=== PATIENT | female | born 1940 | race Caucasian/White ===

== ENCOUNTER 2017-10-09 17:53 | Emergency (ER) | payer MEDICARE, OTHER, SELFPAY ==
[2017-10-09 18:05] VITALS: BP 142/75; PULSE 74; RESP 18; O2SAT 99; BMI 28.5
--- NOTE | 2017-10-09 18:15 | XR_ITS ---
XR chest 2V HISTORY: ITS.REASON: post-op for JUAN removal ORDERING PHYSICIAN: Neeraj Vega MD PATIENT AGE: 77 years COMPARISON: 05/09/2015 FINDINGS: History is given of recent left upper lobe surgery/removal. Heart size is normal. Chronic coarsening of the bronchovascular markings noted with evidence of old granulomatous disease. There is a 13 mm opacity in the left midlung and could be related to developing nodule or a focal area of consolidation. There is increased density along the left paraspinal region and left lower lung zone in the retrocardiac area. This has the appearance of left lower lobe collapse however, given the patient's history this may only be due to postsurgical change. Correlation with more recent postoperative films are recommended. Chest CT may be of further value as well. There is slightly elevated left hemidiaphragm. The right lung is free of acute infiltrate. No acute bony anomalies. IMPRESSION: 1. 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 2. The appearance of the chest is that of left lower lobe collapse. Please correlate with patient's surgical history. 3. 13 mm left upper lobe nodule similar to that noted on the previous CT scan of 08/29/2017 suspicious for neoplasm
--- NOTE | 2017-10-09 18:34 | HMH.EDWNDL ---
ED Disposition Clinical Impression: Seroma after procedure Dehiscence of laceration repair Qualifiers: Encounter type: initial encounter Qualified Code(s): T81.33XA - Disruption of traumatic injury wound repair, initial encounter Disposition: Home, Self-Care Condition on Discharge: Good Instructions: DI for Laceration Repair Additional Instructions: Please keep wound clean and dry, change dressing daily, follow-up with the growth media mixer mushroom, as scheduled on Saturday. Please find attached a copy of your chest x-ray obtained today. Please advise the growth media mixer mushroom if dressing continues to be stained or soaked with fluid. Referrals: Demetrius Sheppard MD [Primary Care Provider] - Time of Disposition: 19:09 - Critical Care Critical Care Time: No Attestation: On 10/09/17, the high probability of a clinically significant, sudden or life threatening deterioration of the following system(s) required my full and direct attention, intervention and personal management. The time I documented below is in addition to time spent performing reported procedures but includes the following listed in this critical care notation. Medical Decision Making - Medical Records Medical records reviewed: Yes: I reviewed the patient's medical records. Vital Signs: 10/09/17 18:05 Temperature Source Oral Pulse Rate [Right Brachial] 74 Respiratory Rate 18 Blood Pressure [Right Arm] 142/75 Blood Pressure Mean [Right Arm] 97 Blood Pressure Source [Right Arm] Automatic Cuff Blood Pressure Position [Right Arm] Sitting 02 Sat by Pulse Oximetry 99 Oxygen Delivery Method Room Air - Lab Data Lab results reviewed: Yes: I reviewed the patient's lab results. - Radiology Data #1 Image(s): Chest Image Reviewed: Yes I reviewed the patient's radiology image Preliminary Findings: Normal/NAD no pleural effusion, no PTX, no consolidation. - Chris Inquiry Pt receiving controlled substance: No - Reevaluation(s) Time: 19:00 Reevaluation #1: Patient is to follow up with CT surgeon per discharge instructions, if drainage restarts to return to this ER for re-eval. Wound/Laceration HPI - General Chief Complaint: Wound/Laceration Stated Complaint: Surg [id number] Surg Leaking Time Seen by Provider: 10/09/17 18:10 Mode of Arrival: Family Vehicle Limitations: Physical Limitations Description of Symptoms (Recalled from ER Triage Doc. by RN): RECENTLY HAD UPPER LOBECTOMY LEFT SIDE AT ON 4TH OF MONTH. REMOVAL OF. CANCER. NO ISSUES TILL TODAY WHEN SHE BEGAN RANDOMLY DRAINING - History of Present Illness HPI narrative: s/p left upper lung lobe resection at [facility] 2 weeks ago, here with post surgical wound draining serous fluid for the past 2-3 hrs. Onset (ago): hour(s) (3) Location: chest (left posterior chest) Patient tetanus UTD: Yes Context: other (post surgical wound) Associated symptoms: none - Related Data Home Medications Medication Instructions Recorded Confirmed Bisoprol/Hydrochlorothiazide 1 tab PO DAILY 10/09/17 10/09/17 [Bisoprolol-Hctz 10-6.25 mg Tab] Omeprazole [Omeprazole 20mg 1 tab PO DAILY 10/09/17 10/09/17 Capsule] Simvastatin [Simvastatin] 1 tab PO DAILY 10/09/17 10/09/17 Allergies Allergy/AdvReac Type Severity Reaction Status Date / Time meloxicam [MELOXICAM] AdvReac Unknown CAUSED Verified 10/09/17 18:20 [facility] History I have reviewed the patient's past medical history: Yes Medical History: Denies:: Cancer, Diabetes Mellitus Type 1, Diabetes Mellitus Type 2, MRSA - *Social History Educational Level: Completed Grade School Alcohol Intake: never - Psychiatric History Expresses thoughts of harming self/others: None Suicide Plan Description: No Plan ROS Obtained: Yes All systems reviewed & no additional complaints - Integumentary/Breasts Skin/Breast: Reports other (left posterior chest surgical wound drainage) Physical Exam - General General appearance
== END 2017-10-09 19:36 | disposition home or self-care (01) ==
PROVIDERS: Emergency Provider Emergency Medicine; PCP Internal Medicine Adolescent Medicine
DX: L76.34 Postprocedural seroma of skin and subcutaneous tissue following other procedure (principal); T81.31XA Disruption of external operation (surgical) wound, not elsewhere classified, initial encounter; Y83.9 Surgical procedure, unspecified as the cause of abnormal reaction of the patient, or of later complication, without mention of misadventure at the time of the procedure; C34.92 Malignant neoplasm of unspecified part of left bronchus or lung; Z79.899 Other long term (current) drug therapy
CPT/HCPCS: 12001; 71046; 99282

== ENCOUNTER → 2017-10-15 09:54 | Outpatient (CLI) | payer MEDICARE, OTHER, SELFPAY ==
--- NOTE | 2017-10-15 10:06 | XR_ITS ---
XR chest 2V HISTORY: ITS.REASON: LUNG NODULE ORDERING PHYSICIAN: Akshat Field MD PATIENT AGE: 77 years COMPARISON: 10/09/2017 FINDINGS: There is normal heart size. Increased density is once again noted in the retrocardiac region on the left giving the appearance of left lower lobe collapse similar to the previous exam. Postsurgical change could have a similar appearance. Please correlate with patient's history. Chest CT with contrast may be of further value for confirmation. There is once again noted a suspicious 11 mm nodule in the left upper lobe. There is evidence of old granulomatous disease. IMPRESSION: 1. Overall no significant change in the appearance of the chest with wedge shaped density in the retrocardiac region consistent with left lower lobe collapse versus postsurgical change. 2. No change suspicious 11 mm left upper lobe nodule
== END ==
PROVIDERS: PCP Internal Medicine Adolescent Medicine; Visit Provider Thoracic Surgery (Cardiothoracic Vascular Surgery)
DX: R91.1 Solitary pulmonary nodule (principal)
CPT/HCPCS: 71046

== ENCOUNTER → 2017-10-18 08:57 | Outpatient (POV) | payer MEDICARE, OTHER, SELFPAY | PROVIDERS: Visit Provider Thoracic Surgery (Cardiothoracic Vascular Surgery) | DX: Z00.00 Encounter for general adult medical examination without abnormal findings (principal) ==

== ENCOUNTER → 2017-12-30 13:14 | Outpatient (CLI) | payer MEDICARE, OTHER, SELFPAY ==
[2017-12-30 13:20] LABS: Microscopic, Urine URINE MICROSCOPIC (MICROSCOPIC)
[2017-12-30 13:57] LABS: Appearance,Urine CLEAR (Clear); Bilirubin,Urine Negative (Negative); Blood, Urine TRACE-L (Negative); Color,Urine YELLOW (Yellow); Glucose,Urine (UA) Negative (Negative); Ketones,Urine Negative (Negative); Leukocyte Esterase,Urine 1+ (Negative); Nitrate,Urine Negative (Negative); Protein,Urine Negative (Negative); Urobilinogen,Urine 0.2 EU/dl (0.2)
[2017-12-30 14:30] LABS: Bacteria,Urine 2+ /lpf; RBC,Urine Occasional #/hpf (0-3)
== END ==
PROVIDERS: Visit Provider Nurse Practitioner Family
DX: R31.21 Asymptomatic microscopic hematuria (principal)
CPT/HCPCS: 81001; 87086

== ENCOUNTER → 2018-01-01 12:51 | Outpatient (CLI) | payer MEDICARE, OTHER, SELFPAY ==
--- NOTE | 2018-01-01 12:53 | CT_ITS ---
CT chest wo con HISTORY: Follow-up lung cancer ITS.REASON: LUNG CA ORDERING PHYSICIAN: Akshat Field MD PATIENT AGE: 77 years Technique: Axial images obtained. Sagittal and coronal reformatted images are also generated and reviewed. All CT scans at the facility use one or more dose reduction, viz: automated exposure control; ma/kV adjustment per patient size (including targeted exams where dose is matched to indication; i.e. head); or iterative reconstruction technique. CONTRAST: None COMPARISON: and 03/20/2017 FINDINGS: The patient has had an interval left lower lobectomy. Mediastinal and hilar evaluation is limited without IV contrast. The previously noted area of consolidation with nodularity in the superior segment left lower lobe is no longer present having been removed. Surgical changes are present with pleural thickening and loculated pleural effusion in the left lower lungs. There remains a spiculated lesion within the left upper lobe at 16 x 10 mm similar in size compared to the previous exam. Calcified granulomas present in the left apex. Other scattered calcified granulomas are present. A noncalcified nodule present in the right middle lobe at 6 mm unchanged the right posterior costophrenic sulcus is not included on the images 8 mm nodular opacity in the right lung base medially adjacent to the heart and may actually be partial volume averaging from the inferior pulmonary vein stable since 05/09/2015. There are few small nodes in the mediastinum which are not significantly changed. Precarinal adenopathy noted at 2.4 x 1.5 cm not significant change. There is limited evaluation without IV contrast. There is increased soft tissue density in the left upper lobe anteriorly and medially which is developed in the interval and could be due to an area of subpleural atelectasis or consolidation. No acute bony anomalies. IMPRESSION: 1. Interval left lower lobectomy. 2. No change spiculated 15 x 10 mm nodule in the left upper lobe. 3. No change mild mediastinal adenopathy
== END ==
PROVIDERS: PCP Nurse Practitioner Family; Visit Provider Thoracic Surgery (Cardiothoracic Vascular Surgery)
DX: C34.90 Malignant neoplasm of unspecified part of unspecified bronchus or lung (principal)
CPT/HCPCS: 71250

== ENCOUNTER → 2018-01-03 09:45 | Outpatient (CLI) | payer MEDICARE, OTHER, SELFPAY ==
[2018-01-03 11:21] LABS: Blood Urea Nitrogen 19 mg/dL (7-18); Creatinine,Serum 1.14 mg/dL (0.55-1.02); Estimated Glomerular Filt Rate 46 ml/min (>60); GFR (African American) 56 ML/MIN (>60)
== END ==
PROVIDERS: Visit Provider Internal Medicine Adolescent Medicine
DX: R31.29 Other microscopic hematuria (principal)
CPT/HCPCS: 36415; 82565; 84520

== ENCOUNTER → 2018-01-09 09:25 | Outpatient (CLI) | payer MEDICARE, OTHER, SELFPAY ==
--- NOTE | 2018-01-09 09:45 | CT_ITS ---
CT abdomen pelvis wo/w con CLINICAL INDICATION: ITS.REASON: MICROSCOPIC HEMATURIA ORDERING PHYSICIAN: Lexi Du PATIENT AGE: 77 years COMPARISON: 05/09/2015 TECHNIQUE: Axial images obtained without and with contrast. Post enhanced images are obtained immediately and at 10 minute delayed. Sagittal and coronal reformats. All CT scans at the facility use one or more dose reduction, viz: automated exposure control; ma/kV adjustment per patient size (including targeted exams where dose is matched to indication; i.e. head); or iterative reconstruction technique. PROCEDURE: Oral Contrast: None IV Contrast: 75 mL of Isovue-370. FINDINGS: Nodular opacities are present in both lung bases similar to the chest CT of 01/01/2018. Please see that report for further description. Loculated pleural effusion is present in the left lower lobe. The liver, spleen, adrenal glands, and pancreas have an unremarkable appearance. No renal calculi or hydronephrosis evident. There are small bilateral parapelvic renal cysts. A 5 mm isodensity is present in the lower pole the left kidney is may be due to small cyst not significantly changed. Urinary bladder has an unremarkable appearance. No pelvic mass or abnormal fluid collection or focal inflammatory change. No evidence of appendicitis, intestinal obstruction, diverticulitis, or free air. No acute bony anomalies. IMPRESSION: 1. No acute finding. No obstructing renal or ureteral calculi or suspicious renal mass. 2. Small parapelvic renal cyst and small left renal cortical cyst
--- NOTE | 2018-01-09 11:07 | HMH.ITSHM ---
BISOPR/HCTZ, SIMVASTATIN, OMEPRAZOLE
== END ==
PROVIDERS: PCP Nurse Practitioner Family; Visit Provider Nurse Practitioner Family
DX: R31.29 Other microscopic hematuria (principal)
CPT/HCPCS: 74170; 74178; Q9967

== ENCOUNTER → 2018-01-17 08:13 | Outpatient (POV) | payer MEDICARE, OTHER, SELFPAY | PROVIDERS: PCP Nurse Practitioner Family; Visit Provider Thoracic Surgery (Cardiothoracic Vascular Surgery) | DX: Z00.00 Encounter for general adult medical examination without abnormal findings (principal) ==

== ENCOUNTER → 2018-03-17 14:46 | Outpatient (CLI) | payer MEDICARE, OTHER, SELFPAY ==
[2018-03-17 15:27] LABS: Blood Urea Nitrogen 21 mg/dL (7-18); Creatinine,Serum 0.93 mg/dL (0.55-1.02); Estimated Glomerular Filt Rate 58 ml/min (>60); GFR (African American) 71 ML/MIN (>60)
--- NOTE | 2018-03-17 15:37 | CT_ITS ---
CT chest wo/w con HISTORY: ITS.REASON: LUNG CA ORDERING PHYSICIAN: Akshat Field MD PATIENT AGE: 77 years COMPARISON: CT chest 08/10 and 08/29/2017 Technique: Helical CT scanning performed through the chest before and after 75 cc Isovue-370. Sagittal and coronal reformatted images are also generated and reviewed. All CT scans at the facility use one or more dose reduction, viz: automated exposure control; ma/kV adjustment per patient size (including targeted exams where dose is matched to indication; i.e. head); or iterative reconstruction technique. FINDINGS: Motion artifact on diminishes resolution on some of the images for example there is multiple step-off artifact at the sternum due to likely respiratory motion artifact Left lower lobectomy again noted . The previously noted area ofconsolidation with nodularity in the superior segment left lower lobe seen August 2017 is no longer present having been removed. Surgical changes are present with pleurathickening and loculated pleural effusion in the left lower lungs. Most notable nodule is been spiculated lesion within L UL 15 mm x 10 mm. similar in sizecompared to the previous exam. Other stable less concerning features, Calcified granulomas present in the left apex.Other scattered calcified granulomas are present. A noncalcified nodule anterior RML axial slice 45 at 6 mm unchanged . Fairly dense for size on previous studies There is question regarding nodule into the right branden but I believe this is related to volume averaging from the rightqq pulmonary vein as previously suggested. Motion artifact is more pronounced in this area which does decrease resolution Also Very minor pleural thickening/ soft tissuedensity in the left upper lobe overlying its anteriorly and medially aspect that was noted on on previous study appears less evident today. Likely likely reflecting mainly atelectasis possibly some minor scarring. Not felt to be of significance.. fluid occupying the site of left lobectomy here at the medial left lung base again noted. Only scant pleural fluid otherwise posteriorly at the left chest. Mediastinum fairly stable appearance changed. Precarinal adenopathy noted at 23 x 12 mm not significant change. No acute bony anomalies. . A small lucent area at the posterior aspect lower thoracic T9 vertebra stable since 2017 doubt/unlikely metastatic disease. More likely merely small benign cystic feature IMPRESSION 1.. Left lower lobectomy.. Stable appearance since 01/01/2018 Persistent of pleural fluid collection and medial left base subsequent to the removed left lower lobe. Also with scant thin left pleural effusion otherwise noted more superiorly left chest which is stable 2. No appreciable change of the spiculated 15 x 10 mm nodule in the left upper lobe. 3. No change mild mediastinal adenopathy
== END ==
PROVIDERS: PCP Internal Medicine Adolescent Medicine; Visit Provider Thoracic Surgery (Cardiothoracic Vascular Surgery)
DX: C34.32 Malignant neoplasm of lower lobe, left bronchus or lung (principal)
CPT/HCPCS: 36415; 71270; 82565; 84520; Q9967

== ENCOUNTER → 2018-04-07 17:39 | Outpatient (CLI) | payer MEDICARE, OTHER, SELFPAY ==
--- NOTE | 2018-04-07 | CT_ITS ---
CT cervical spine wo con Ordering Physician: Demetrius Sheppard MD Patient Age: 77 years: Female HISTORY: Fell off tractor this afternoon. Injury to head and neck and left side of face bruised. Eye Swollen Neck pain TECHNIQUE: Helical CT scanning performed of the cervical spine with sagittal and axial and coronal reconstructions on CT workstation.. All CT scans at this facility used one or more dose reduction techniques , viz: automatic exposure control, ma/Kv adjustment per patient's size, (including targeted exam where dose matched to the indication; i.e. head); or iterative reconstruction technique COMPARISON :Previous CT soft tissue neck 03/04/2017 FINDINGS No acute fracture nor subluxation cervical spine. There are multilevel degenerative changes with prominent disc space narrowing C3/, C4/C5 & C5/ C6 The cranial cervical junction appears adequate. C1-C2 relationships appear normal. C2/3 disc intact mild degenerative facet changes bilateral C3/4 marked degenerative disc space narrowing disc with mild 2 mm retrolisthesis, of C3 on C4. Unchanged since prior 2017 exam mild bilateral degenerative facet changes. C4/5:: Marked degenerative disc space narrowing& nearly Obliterating the disc. Scant posterior hypertrophic endplate ridging facet arthropathy C5-C6. Disc space narrowing. Facet arthropathy Apices the lungs are clear. No prominent masses scattered small nodes in the neck No significant new findings compared to 2017 CT soft tissue neck Trace mucosal thickening at the inferior maxillary sinuses IMPRESSION. ========= 1. No acute fracture nor subluxation cervical spine 2. Multilevel degenerative disc changes - Unchanged appearance since 2017 CT neck IMPRESSION:
--- NOTE | 2018-04-07 17:49 | CT_ITS ---
CT head/brain wo con HISTORY: Fell off tractor. This morning. Hit left side of face and head. Left eye swollen. ITS.REASON: FALL WITH HEAD TRAUMA ORDERING PHYSICIAN: Demetrius Sheppard MD PATIENT AGE: 77 years COMPARISON: MRI of brain 2010 TECHNIQUE: Axial images obtained without contrast. Brain and bone windows reviewed. All CT scans at the facility use one or more dose reduction, viz: automated exposure control; ma/kV adjustment per patient size (including targeted exams where dose is matched to indication; i.e. head); or iterative reconstruction technique. FINDINGS: No acute intracranial findings. No midline shift, mass effect, intracranial hemorrhage, hydrocephalus, or extra-axial fluid collection is evident. Atherosclerotic changes and carotid siphon . slightly generous cisterna magna noted. Stable since 2011 MR. Posterior fossa otherwise unremarkable No acute skull fracture . There is a fracture at the medial wall of the left orbit but no adjacent air-fluid levels nor inflammatory changes nor or findings in the ethmoid air cells to further confirm as acute fracture. The 5 mm medially displaced fragment at lamina papyracea measures 14 mm AP, with smooth margins .I tend favor this is old, but This feature has occurred occurred since 2010 MR brain exam.. Thus cannot totally exclude a recent fracture of the of thin medial orbital wall/lamina papyracea particularly in view of the recent left face trauma and evident periorbital edema and swelling. The left globe intact & unremarkable by CT. No sinus air-fluid levels.. Specifically no fluid levels or findings at left ethmoid air cells that would typically be expected from a recent fracture . Only Scant, Minor mucosal thickening maxillary sinuses bilaterally. Leftward deviation nasal septum incidentally noted. Left Periorbital Soft tissue swelling surrounding the left orbit Mastoid air cells well-developed and clear. Middle ear clear. IACs unremarkable.No mastoid effusion. ----IMPRESSION : No acute intracranial findings Left Periorbital edema on reflecting recent face trauma. Fracture at the thin medial wall/lamina papyracea of left orbit. Age indeterminate but tend to favor older. No air-fluid level or adjacent findings in the ethmoid air cells to further support as acute. However this has occurred since 2011 MRI brain. Correlation required Minor VRC discrepancy
[2018-04-07 18:30] VITALS: BMI 28.3
== END ==
PROVIDERS: PCP Internal Medicine Adolescent Medicine; Visit Provider Internal Medicine Adolescent Medicine
DX: S09.8XXA Other specified injuries of head, initial encounter (principal)
CPT/HCPCS: 70450; 72125; 90715; 96372

== ENCOUNTER → 2018-04-23 08:15 | Outpatient (CLI) | payer MEDICARE, OTHER, SELFPAY ==
--- NOTE | 2018-04-23 08:18 | MM_ITS ---
MM Dig screening mamm BI w/CAD I ORDERING PHYSICIAN : Demetrius Sheppard MD PATIENT AGE: 77 years GENDER: Female COMPARISON: March 2016, February 2015, December 2013, INDICATION: ITS.REASON: SCREENING no hormones. No new complaints. Previous benign surgical excisional biopsy at the left breast Breast surgery scar at the 1-2 o'clock position left breast along with a? Lung surgery scar? Family history. Maternal aunt with breast cancer TECHNIQUE: Standard CC and MLO images were obtained. R2 CAD reviewed. FINDINGS: Moderate density breast with no dominant mass nor suspicious calcifications. Breast mild asymmetry appears stable. CAD computer review highlights no areas of concern either.. IMPRESSION: Basically Stable bilateral mammogram.... No significant new areas of concern Moderate breast density. Follow-up in one year BI-RADS Category: 2 Benign Finding(s) RECOMMENDED FOLLOW-UP: 1YR 1 YEAR FOLLOW-UP (A letter has been sent to the patient regarding results of the study.)
== END ==
PROVIDERS: PCP Internal Medicine Adolescent Medicine; Visit Provider Internal Medicine Adolescent Medicine
DX: Z12.31 Encounter for screening mammogram for malignant neoplasm of breast (principal)
CPT/HCPCS: 77067

== ENCOUNTER → 2018-07-26 08:42 | Outpatient (CLI) | payer MEDICARE, OTHER, SELFPAY ==
[2018-07-26 09:17] LABS: Basophils % 0.2 % (0.1-2.0); Eosinophils # 0.1 K/mm3 (0.0-0.4); Eosinophils % 2.8 % (0.1-12.0); Hematocrit 42.1 % (37.0-47.0); Hemoglobin 13.3 g/dL (12.2-16.2); Lymphocytes % 21.7 K/mm3 (10-50); Mean Corpuscular HGB Conc 31.7 g/dL (31.8-35.4); Mean Corpuscular Hemoglobin 29.4 pg (27.0-31.2); Mean Platelet Volume 7.4 fl (7.4-10.4); Monocytes # 0.2 K/mm3 (0.1-1.0); Monocytes % 4.3 % (1.7-9.3); Neutrophils # 3.3 K/mm3 (1.8-7.8); Neutrophils % 70.9 % (37.0-80.0); Platelet Count 203 K/mm3 (142-424); Red Blood Count 4.52 M/mm3 (4.20-5.40); Red Cell Distribution Width 13.5 % (11.5-17.5); White Blood Count 4.6 K/mm3 (4.8-10.8)
[2018-07-26 12:55] LABS: Alanine Aminotransferase 17 U/L (12-78); Albumin Level 3.2 gm/dL (3.4-5.0); Albumin/Globulin Ratio 0.8 (1.1-1.8); Alkaline Phosphatase 90 U/L (46-116); Anion Gap 11.6 mEq/L (5-15); Aspartate Amino Transferase 20 U/L (15-37); Bilirubin,Total 0.6 mg/dL (0.2-1.0); Blood Urea Nitrogen 20 mg/dL (7-18); Calcium 8.7 mg/dL (8.5-10.1); Carbon Dioxide 30 mmol/L (21.0-32.0); Chloride 105 mmol/L (98-107); Chol/HDL Ratio 2.6 (1-3.5); Cholesterol 162 mg/dL (140-200); Creatinine,Serum 0.97 mg/dL (0.55-1.02); Estimated Glomerular Filt Rate 56 ml/min (>60); GFR (African American) 67 ML/MIN (>60); Globulin 3.9 gm/dl (1.3-3.2); Glucose 85 mg/dL (74-106); HDL Cholesterol 63 mg/dL (29-89); LDL Cholesterol 81 mg/dL (0-130); Potassium 4.6 mmoL/L (3.5-5.1); Sodium 142 mmol/L (136-145); Thyroid Stimulating Hormone 1.94 uIU/ml (0.358-3.740); Total Protein,Serum 7.1 gm/dL (6.4-8.2); Triglycerides 88 mg/dL (30-200); VLDL Cholesterol 18 mg/dL (0-40)
== END ==
PROVIDERS: Visit Provider Nurse Practitioner Family
DX: Z85.118 Personal history of other malignant neoplasm of bronchus and lung (principal); I10 Essential (primary) hypertension; E78.5 Hyperlipidemia, unspecified; E04.1 Nontoxic single thyroid nodule
CPT/HCPCS: 36415; 80053; 80061; 84443; 85025

== ENCOUNTER → 2018-07-29 14:19 | Outpatient (CLI) | payer MEDICARE, OTHER, SELFPAY ==
--- NOTE | 2018-07-29 14:21 | US_ITS ---
US thyroid HISTORY: ITS.REASON: THYROID NODULE ORDERING PHYSICIAN: Lexi Du PATIENT AGE: 77 years Comparison: 04/10/2016 FINDINGS: The right lobe is 4.1 x 1.7 x 1.6 cm with heterogeneous echogenicity. Nodule A: Upper pole 6 x 4 mm slightly hypoechoic. Nodule B: Mid polar region 9 x 10 mm with central calcification hypoechoic. FNA was performed of this nodule showing benign follicular nodule on 05/09/2016 Nodule C: Hypoechoic lower pole 3 mm. Nodule D: Isoechoic lower pole 6 by millimeters unchanged The left lobe measures 3.5 x 1.3 x 1.9 cm. Nodule A: Heterogeneous 5 x 3 mm nodule mid polar region unchanged. Nodule B: 3 mm hypoechoic mid polar region unchanged IMPRESSION: Overall no change in the dominant nodule in the right lobe of the thyroid gland with multiple small nodules apparent with low level of suspicion for malignancy
--- NOTE | 2018-07-29 14:22 | XR_ITS ---
XR DEXA axial skeleton HISTORY: ITS.REASON: POST MENOPAUSAL ORDERING PHYSICIAN: Lexi Du PATIENT AGE: 77 years COMPARISON: None FINDINGS: The BMD measured at the Right femoral neck is 0.833 g/cm squared with a T score of -1.5. This is considered Osteopenic according to the World Health Organization criteria. Fracture risk is Moderate. Treatment is advised. L1 L4 density has a T score of 2.0. IMPRESSION: Osteopenia with moderate fracture risk. Suggest treatment and follow-up exam July 2020
== END ==
PROVIDERS: PCP Nurse Practitioner Family; Visit Provider Nurse Practitioner Family
DX: E04.1 Nontoxic single thyroid nodule (principal); Z13.820 Encounter for screening for osteoporosis; Z78.0 Asymptomatic menopausal state
CPT/HCPCS: 76536; 77080

== ENCOUNTER → 2018-08-05 10:14 | Outpatient (POV) | payer MEDICARE, OTHER, SELFPAY | PROVIDERS: Visit Provider Dermatology | DX: Z00.00 Encounter for general adult medical examination without abnormal findings (principal) ==

== ENCOUNTER → 2019-04-16 08:09 | Outpatient (CLI) | payer MEDICARE, OTHER, SELFPAY ==
[2019-04-16 10:26] LABS: Alanine Aminotransferase 13 U/L (12-78); Albumin Level 2.8 gm/dL (3.4-5.0); Albumin/Globulin Ratio 0.7 (1.1-1.8); Alkaline Phosphatase 98 U/L (46-116); Anion Gap 12.1 mEq/L (5-15); Aspartate Amino Transferase 11 U/L (15-37); Bilirubin,Total 0.5 mg/dL (0.2-1.0); Blood Urea Nitrogen 20 mg/dL (7-18); Calcium 8.9 mg/dL (8.5-10.1); Carbon Dioxide 28 mmol/L (21.0-32.0); Chloride 105 mmol/L (98-107); Chol/HDL Ratio 2.9 (1-3.5); Cholesterol 150 mg/dL (140-200); Creatinine,Serum 0.94 mg/dL (0.55-1.02); Estimated Glomerular Filt Rate 58 ml/min (>60); GFR (African American) 70 ML/MIN (>60); Globulin 4.1 gm/dl (1.3-3.2); Glucose 90 mg/dL (74-106); HDL Cholesterol 52 mg/dL (29-89); LDL Cholesterol 85 mg/dL (0-130); Potassium 4.1 mmoL/L (3.5-5.1); Sodium 141 mmol/L (136-145); Total Protein,Serum 6.9 gm/dL (6.4-8.2); Triglycerides 67 mg/dL (30-200); VLDL Cholesterol 13 mg/dL (0-40)
== END ==
PROVIDERS: Visit Provider Nurse Practitioner Family
DX: I10 Essential (primary) hypertension (principal); E04.1 Nontoxic single thyroid nodule; E78.5 Hyperlipidemia, unspecified
CPT/HCPCS: 36415; 80053; 80061; 84443

== ENCOUNTER → 2020-06-22 09:09 | Outpatient (CLI) | payer MEDICARE, OTHER, SELFPAY ==
[2020-06-22 10:09] LABS: Basophils % 0.7 % (0.1-2.0); Eosinophils # 0.1 K/mm3 (0.0-0.4); Eosinophils % 1.8 % (0.1-12.0); Hematocrit 36.2 % (37.0-47.0); Hemoglobin 11.2 g/dL (12.2-16.2); Lymphocytes # 0.5 K/mm3 (0.7-4.5); Lymphocytes % 14.8 % (10-50); Mean Corpuscular HGB Conc 30.9 g/dL (31.8-35.4); Mean Corpuscular Hemoglobin 30.1 pg (27.0-31.2); Mean Corpuscular Volume 97.4 fl (81-99); Mean Platelet Volume 7.4 fl (7.4-10.4); Monocytes # 0.1 K/mm3 (0.1-1.0); Monocytes % 3.3 % (1.7-9.3); Neutrophils % 79.6 % (37.0-80.0); Platelet Count 167 K/mm3 (142-424); Red Blood Count 3.72 M/mm3 (4.20-5.40); Red Cell Distribution Width 14.2 % (11.5-17.5); White Blood Count 3.7 K/mm3 (4.8-10.8)
[2020-06-22 12:21] LABS: Chloride 105 mmol/L (98-107); Potassium 3.6 mmoL/L (3.5-5.1); Sodium 136 mmol/L (136-145)
[2020-06-22 12:23] LABS: Blood Urea Nitrogen 17 mg/dl (7-17); Estimated Glomerular Filt Rate 36 ml/min (>60); GFR (African American) 44 ML/MIN (>60)
[2020-06-22 12:24] LABS: Alanine Aminotransferase 27 U/L (12-78); Albumin Level 2.5 g/dl (3.5-5.0); Albumin/Globulin Ratio 0.8 (1.1-1.8); Alkaline Phosphatase 93 U/L (38-126); Anion Gap 8.6 mEq/L (5-15); Aspartate Amino Transferase 35 U/L (14-36); Bilirubin,Total 0.7 mg/dl (0.2-1.3); Carbon Dioxide 26 mmol/L (22.0-30.0); Globulin 3.1 g/dL (1.3-3.2); Total Protein,Serum 5.6 g/dl (6.3-8.2)
[2020-06-22 12:25] LABS: Calcium 8.1 mg/dl (8.4-10.2); Glucose 191 mg/dl (74-100)
[2020-06-22 12:53] LABS: Thyroid Stimulating Hormone 1.42 uIU/mL (0.465-4.68)
[2020-06-22 17:36] LABS: Hemoglobin A1C 5.3 % (4.0-6.0)
== END ==
PROVIDERS: Internal Medicine Adolescent Medicine; Visit Provider Nurse Practitioner Family
DX: C34.12 Malignant neoplasm of upper lobe, left bronchus or lung (principal); R63.4 Abnormal weight loss; I10 Essential (primary) hypertension; R73.09 Other abnormal glucose
CPT/HCPCS: 36415; 80053; 83036; 84443; 85025

== ENCOUNTER → 2021-04-03 10:32 | Outpatient (CLI) | payer MEDICARE, OTHER, SELFPAY ==
--- NOTE | 2021-04-03 10:37 | XR_ITS ---
PROCEDURE: XR HUMERUS RT CLINICAL INDICATION: PAIN IN RT UPPER ARM, PRIMARY ADENOCARCINOMA ULLL COMPARISON: No exams were available for comparison FINDINGS: No acute fracture or dislocation. No lytic or blastic change. There is some subchondral lucency noted at the greater tuberosity with low lying a chromium. These findings may be seen with rotator cuff disease. Other findings:None. IMPRESSION: No lytic or blastic change. Low-lying acromion with subchondral lucencies in the greater tuberosity which may be related to rotator cuff disease Dictated by: Tony Monet MD 04/03/2021 11:17 Tony Monet MD in [place] 04/03/2021 11:17
== END ==
PROVIDERS: PCP Nurse Practitioner Family; Visit Provider Nurse Practitioner Family
DX: M79.621 Pain in right upper arm (principal); C34.12 Malignant neoplasm of upper lobe, left bronchus or lung
CPT/HCPCS: 73060

== ENCOUNTER 2021-06-08 09:00 | Outpatient (RCR) | payer MEDICARE, OTHER, SELFPAY ==
--- NOTE | 2021-04-25 08:50 | HMH.OTOPEV ---
OT Inpatient Evaluation Rehab OT Outpatient Eval Start: 04/25/21 08:35 Freq: Status: Active Protocol: Document 04/25/21 08:35 [facility] (Rec: 04[facility]25/21 08[id number] Electronically Signed By Thania Ribera OT 04/25/21 08:35 Outpatient Therapy Subjective History Subjective History Pt is an 80 year old female who reports to therapy for initial evaluation to right shoulder/arm. Pt reports ~ 6 weeks ago she started having pain in the anterior shoulder/ bicep area. She does not recall any specific injury causing the pain to begin. Pt went to PCP 3 weeks ago and was referred to OT. Pt did have an x-ray which found pt has a low lying acromion with subchondral lucencies in the greater tuberosity. Pt does explain her pain has improved since going to the doctor. 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 She is right hand dominant. Pt was diagnosed with lung CA in 2017 and is still being treated for it. Pt does demonstrate with decreased AROM and strength at right shoulder. Chief Complaint Pain,Stiff,Weakness Symptom Type Ache,Dull Symptoms Relieved By Rest/Positioning Symptoms Aggravated By Physical Activity,Lifting Prior Functional Limitations None Current Functional Limitations Reaching,Lifting,Housework, Sleeping,Recreation Activity Symptom Description Intermittent,Activity Dependent Level of pain today (0-10) 0 Pain scale - at its best (0-10) 0 Pain scale - at its worst (0-10) 5 Shoulder/Elbow Eval Shoulder Objective Measurements Shoulder ROM Right Shoulder Abduction Active Range of 110 degrees Motion (degrees) Shoulder Flexion Active Range of Motion 125 degrees (degrees) Query Text: Shoulder External Rotation Active Range 50 degrees of Motion (degrees) Shoulder Internal Rotation Active Range 65 degrees of Motion (degrees) pain with active ROM shoulder exam right standard
--- NOTE | 2021-06-06 10:48 | HMH.RHREAS ---
Rehab Reassessment Rehab OP Re-assessment Start: 06/06/21 10:42 Freq: Status: Active Protocol: Document 06/06/21 10:42 [facility] (Rec: 06/06/21 10:47 [facility] [id number]) Electronically Signed By Thania Wood OT 06/06/21 10:42 Rehab Re-assessment Subjective Subjective Still a little pain. Objective Objective Notes Pt continues to be seen twice a week in order to address Right shoulder deficits. Each session pt engages in right shoulder AROM, AAROM, and strengthening exercises. Pt is not able to receive modalities such as e-stim, ultrasound, or Ionto due to contraindication with her lung cancer. Therapist does provide ice after exercises to help decreased inflammation/ pain. Assessment Progress Assessment Progressing as Expected Assessment Notes Pt has progressed significantly since starting therapy. Her AROM is within normal limits except for ER. Pt does continue to report pain at a 2/10 at worst. She does still have overall weakness but that could be contributed to other existing issues. Current AROM Right shoulder Flex: 160 degrees Abd: 165 degrees IR: 55 degrees ER: 85 degrees Patient goals met [address]-5 LTG 1, 3, and 4 Goals Not Met See below Revised Goals AROM IR R shoulder: 70 degrees LT and 5 Plan Plan Continue with OT plan of care at this time. Frequency of Therapy 2x's a week Duration of therapy 4 more weeks Time and Billing Re-Eval Time 10 PHYSICIAN CERTIFICATION: I certify the specified therapy services for Rosaura Pierre are required, authorized, and reviewed every 30 days.
== END 2021-06-08 09:05 | disposition home or self-care (01) ==
LOC: OT 09:00
PROVIDERS: PCP Nurse Practitioner Family; Visit Provider Nurse Practitioner Family
DX: M79.621 Pain in right upper arm (principal)
CPT/HCPCS: 97010; 97110; 97140; 97164; 97166; 97530

== ENCOUNTER → 2021-06-23 12:17 | Outpatient (CLI) | payer MEDICARE, OTHER, SELFPAY ==
[2021-06-23 13:19] LABS: Basophils % 0.1 % (0.1-2.0); Eosinophils % 0.2 % (0.1-12.0); Hematocrit 43.7 % (37.0-47.0); Hemoglobin 13.9 g/dL (12.2-16.2); Lymphocytes # 0.7 K/mm3 (0.7-4.5); Lymphocytes % 16.2 % (10-50); Mean Corpuscular HGB Conc 31.9 g/dL (31.8-35.4); Mean Corpuscular Hemoglobin 32.8 pg (27.0-31.2); Mean Platelet Volume 7.3 fl (7.4-10.4); Monocytes # 0.2 K/mm3 (0.1-1.0); Monocytes % 3.8 % (1.7-9.3); Neutrophils # 3.4 K/mm3 (1.8-7.8); Neutrophils % 79.7 % (37.0-80.0); Platelet Count 227 K/mm3 (142-424); Red Blood Count 4.24 M/mm3 (4.20-5.40); Red Cell Distribution Width 13.5 % (11.5-17.5); White Blood Count 4.2 K/mm3 (4.8-10.8)
[2021-06-23 13:39] LABS: Chloride 106 mmol/L (98-107); Potassium 5.1 mmoL/L (3.5-5.1); Sodium 138 mmol/L (136-145)
[2021-06-23 13:42] LABS: Alanine Aminotransferase 16 U/L (12-78); Albumin Level 2.5 g/dl (3.5-5.0); Albumin/Globulin Ratio 0.6 (1.1-1.8); Alkaline Phosphatase 107 U/L (38-126); Anion Gap 7.1 mEq/L (5-15); Aspartate Amino Transferase 33 U/L (14-36); Bilirubin,Total 0.7 mg/dl (0.2-1.3); Blood Urea Nitrogen 23 mg/dl (7-17); Carbon Dioxide 30 mmol/L (22.0-30.0); Estimated Glomerular Filt Rate 36 ml/min (>60); GFR (African American) 44 ML/MIN (>60); Total Protein,Serum 6.5 g/dl (6.3-8.2)
[2021-06-23 13:43] LABS: Calcium 8.7 mg/dl (8.4-10.2); Glucose 107 mg/dl (74-100)
== END ==
PROVIDERS: Visit Provider Nurse Practitioner Family
DX: R60.9 Edema, unspecified (principal)
CPT/HCPCS: 36415; 80053; 85025

== ENCOUNTER 2021-09-12 09:00 | Outpatient (RCR) | payer MEDICARE, OTHER, SELFPAY ==
--- NOTE | 2021-07-03 09:21 | HMH.PTOPWND ---
Rehab Outpt Wound Evaluation Rehab OP Wound Evaluation Start: 07/03/21 08:59 Freq: Status: Active Protocol: Document 07/03/21 09:14 KAY (Rec: 07/03/21 09:21 PHORNE [id number]) Electronically Signed By Hao Blake, PT 07/03/21 09:14 Subjective/History History History Pt is 80 yowf who presents with c/o B LE and Hand edema x ~ 1 yr. She reports hx of NSCLC with partial L upper lobectomy. She has been taking Tabectra to treat her lung cancer which has common side- effect of increased edema. She reports no c/o pain or numbness at this time and otherwise feels well. PMH: HTN , DM-II, lung cancer with multiple surgeries. Subjective Subjective Pt with no c/o currenty, 2+ pitting edema noted to B LE, R >L, and B hands, R>L. Lymphedema Eval Classification of Lymphedema Secondary Lymphedema Yes Stemmer's sign Stemmer's Sign yes Stage of Lymphedema Lymphedema stages Stage I (Pitting edema, reduces w/ elevation, no fibrosis) Skin Changes Dry Skin Yes Skin Folds Yes Redness Yes Wounds Yes Discoloration of Skin Yes Other Changes Yes Pain Scale Pain Scale (0-10) 0 Affected Extremities Areas Affected by Lymphedema/Edema Right Upper Extremity,Left Upper Extremity,Right Lower Extremity,Left Lower Extremity Manual Lymphatic Drainage Treatment Area MLD Treatment Area Right Upper Extremity,Left Upper Extremity,Right Lower Extremity,Left Lower Extremity Wound Problems/Impairments Impairments Problems/Impairmments Impaired Endurance,Increased Edema,Lymphedema Present, Impaired Self Care/Self Management Prognosis Rehab Potential Good Clinical Impression Consistent with Diagnosis Yes Short Term Goals Number of Weeks 4 Decrease Edema Yes Patient to Understand Lymphedema Yes Treatment and Exercises Decrease Girth Measurments by (cm) Yes: by 10 cm Retirement Goals Number of Weeks 8 Decrease Lymphedema Ye
--- NOTE | 2021-08-30 09:16 | HMH.RHREAS ---
Rehab Reassessment Rehab OP Re-assessment Start: 08/01/21 10:01 Freq: Status: Active Protocol: Document 08/30/21 09:13 KAY (Rec: 08/30/21 09:16 KAY [id number]) Electronically Signed By Hao Blake, PT 08/30/21 09:13 Rehab Re-assessment Subjective Subjective Pt reports minimal to no pain in either LE this date. Also reports she got her compression pump deliver to her house and is using it. Objective Objective Notes 2+ pitting edema to R lower leg, 1+ pitting sabi to L lower leg. 0/4 tenderness to palpation this date. Assessment Progress Assessment Progressing as Expected Assessment Notes Continues to decrease edema overall, no fibrotic edema at this time. Some pitting remains and continues to need compression. Patient goals met ST,2,3 Goals Not Met LT,2,3,4,5 Revised Goals none Plan Plan Continue per initial POC. Frequency of Therapy 2 x/wk Duration of therapy 8 wks Time and Billing Re-Eval Time 15 Re-Eval Billing Units 0 PHYSICIAN CERTIFICATION: I certify the specified therapy services for Rosaura Pierre are required, authorized, and reviewed every 30 days.
== END 2021-09-12 09:05 | disposition home or self-care (01) ==
LOC: PT 09:00
PROVIDERS: PCP Nurse Practitioner Family; Visit Provider Nurse Practitioner Family
DX: I89.0 Lymphedema, not elsewhere classified (principal)
CPT/HCPCS: 97110; 97140; 97162; 97164; 97760

== ENCOUNTER 2022-09-16 11:34 | Emergency (ER) | payer MEDICARE, OTHER, SELFPAY ==
[2022-09-16 11:35] VITALS: BP 164/85; PULSE 85; RESP 18; TEMP 36.5; O2SAT 100; BMI 27.3
--- NOTE | 2022-09-16 11:35 | CT_ITS ---
PROCEDURE INFORMATION: Exam: CT Head Without Contrast Exam date and time: 09/16/2022 11:38 AM Age: 82 years old Clinical indication: Stroke-like symptoms; Altered mental status/memory loss; Additional info: Confusion TECHNIQUE: Imaging protocol: Computed tomography of the head without contrast. Radiation optimization: All CT scans at this facility use at least one of these dose optimization techniques: automated exposure control; mA and/or kV adjustment per patient size (includes targeted exams where dose is matched to clinical indication); or iterative reconstruction. Other technique: STROKE PROTOCOL was implemented. COMPARISON: HEADWO CT head/brain wo con 04/07/2018 5:51 PM FINDINGS: Brain: There is a mass present within the left parietal lobe measuring 4.1 x 4.2 x 4.4 cm. Surrounding edematous changes are present. 7 mm [id number] midline shift is present. Cerebral ventricles: Mild dilatation of the left lateral ventricle. Paranasal sinuses: Mucosal thickening noted within the left maxillary sinus. Mastoid air cells: Visualized mastoid air cells are well aerated. Bones/joints: No acute fracture. Soft tissues: No acute changes Other findings: No evidence of acute hemorrhage. IMPRESSION: 1. There is a mass present within the left parietal lobe measuring 4.1 x 4.2 x 4.4 cm. Surrounding edematous changes are present. Findings are highly suspect for neoplasm. Further evaluation with MRI of the brain with and without contrast is recommended. 2. 7 mm [id number] midline shift is present. 3. No evidence of acute hemorrhage.
--- NOTE | 2022-09-16 11:57 | HMH.EDGENADL ---
Discharge Plan Disposition Patient Disposition: Home, Self-Care Condition: Good Prescriptions Prescriptions: New levetiracetam [Keppra] 500 mg tablet 500 mg PO BID Qty: 60 0RF dexamethasone 4 mg tablet 4 mg PO TID Qty: 60 0RF No Action aspirin 81 mg tablet,delayed release (DR/EC) 81 mg PO DAILY sitagliptin phosphate 50 mg tablet 50 mg PO Tabrecta 150 mg tablet 300 mg PO BID bisoprolol-hydrochlorothiazide 10-6.25MG tablet 1 tab PO DAILY Label Comments: omeprazole 20 MG capsule,delayed release(DR/EC) 1 tab PO DAILY Label Comments: Referrals Follow up/Referrals: Lexi Du APRN [Primary Care Provider] - See instructions Activity Restrictions/Add. Instructions Additional Instructions/Restrictions: Increase Decadron (steroid) dose to 3 times per day. Keppra twice a day for seizure prevention. Return to the emergency department if seizure recurs or any worsening of symptoms. Additional instructions for SEIZURE OR LOSS OF CONSCIOUSNESS/POSSIBLE SEIZURE: NO DRIVING, BIKE RIDING, SWIMMING, TUB BATHING, LADDERS OR STEP STOOLS UNTIL CLEARED BY DOCTOR. NO ALCOHOL OR STREET DRUGS. GET 8 HOURS OF SLEEP PER NIGHT. RETURN IF SEIZURE RECURS. Clinical Impressions Clinical Impression: Seizure, Brain metastases Instructions Patient Instructions: DI for Seizure (Not Epilepsy/Seizure Disorder) Discharge ED Provider: Kirk Joshi General Adult HPI General Chief complaint: Weakness Stated complaint: weakness Time Seen by Provider: 09/16/22 11:44 Mode of Arrival: Family Vehicle Source of Information: Patient, Spouse and Relative Limitations: No Limitations Description of Symptoms (Recalled from ER Triage Doc. by RN): Per family pt was sitting in evangelical at 1107 she started having a jerking movement with her head and right hand and wasnt able to communicate at that time with a right sided mouth droop. pt is having some difficulty trying to say what she is thinking such as weight she wanted to say 140 but kept saying 120. AFter multiple tries she was able to say 140. pt unable to do an open smile on the right side to show teeth. History of Present Illness HPI narrative: History obtained from patient, , sister. The patient was discovered to have a brain tumor 2 weeks ago. She was having difficulty speaking and signing [employer] cards. She had a scan of her brain ordered by her primary care provider that was performed in [place]. 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 states that her cancer medication was stopped and she was started on radiation. She has had 5 treatments. She is also on a steroid. Her oncologist is Dr. Deleon at [facility]. She was in evangelical singing when noticed that she was shaking all over and was unable to converse. Right-sided mouth droop, which is new. She was unable to bend her knees, legs were stiff. After she arrived here she was able to speak and was able to walk. She currently has no complaints. Still noted to have right-sided facial asymmetry and tremor of her right leg. Related Data Home Medications Medication Instructions Recorded Confirmed bisoprolol 10 1 tab PO DAILY High blood pressure 10/09/17 09/08/21 mg-hydrochlorothiazide 6.25 mg tablet omeprazole 20 mg capsule,delayed 1 tab PO DAILY GERD 10/09/17 09/08/21 release aspirin 81 mg tablet,delayed 81 mg PO DAILY 06/20/19 09/08/21 release sitagliptin phosphate 50 mg tablet 50 mg PO 02/09/21 09/08/21 capmatinib 150 mg tablet (Tabrecta) 300 mg PO BID 03/06/21 09/08/21 Previous Rx's Medication Instructions Recorded dexamethasone 4 mg tablet 4 mg PO TID #60 tabs 09/16/22 levetiracetam 500 mg tablet 500 mg PO BID #60 tabs 09/16/22 (Brenda) Allergies Allergy/AdvReac Type Severity Reaction Status Date / Time carlee
[2022-09-16 12:01] VITALS: BP 168/82; PULSE 73; RESP 18; O2SAT 99
[2022-09-16 12:04] LABS: POC Glucose,Bedside 76 (70-110)
--- NOTE | 2022-09-16 12:16 | PC.NURSE ---
called [facility] for Dr. Teran in Oncology per ER Doctor. spoke with the call center and Dr. Dior Glaser is director of field coordination for Dr. Teran and they were going to page her and have her call back.
--- NOTE | 2022-09-16 12:49 | PC.NURSE ---
Dr. Glaser from [facility] who is duplication specialist for Dr Teran called back and is speaking with ER Doctor now
[2022-09-16 13:01] VITALS: BP 146/73; PULSE 63; RESP 18; O2SAT 100
[2022-09-16 13:11] LABS: Microscopic, Urine URINE MICROSCOPIC (MICROSCOPIC)
[2022-09-16 13:15] LABS: Appearance,Urine CLEAR (Clear); Bilirubin,Urine Negative (Negative); Blood, Urine Negative (Negative); Color,Urine STRAW (Yellow); Glucose,Urine (UA) Negative (Negative); Ketones,Urine Negative (Negative); Leukocyte Esterase,Urine Negative (Negative); Nitrate,Urine Negative (Negative); Protein,Urine Negative (Negative); Urobilinogen,Urine 0.2 EU/dl (0.2)
[2022-09-16 13:27] LABS: Squamous Epithelial Cell,Urine Occasional #/hpf (0-5)
[2022-09-16 13:30] VITALS: BP 151/75; PULSE 67; O2SAT 99
[2022-09-16 14:13] LABS: Basophils % 0.1 % (0.1-2.0); Eosinophils % 0.3 % (0.1-12.0); Hematocrit 35.7 % (37.0-47.0); Hemoglobin 11.6 g/dL (12.2-16.2); Lymphocytes # 0.5 K/mm3 (0.7-4.5); Lymphocytes % 11.1 % (10-50); Mean Corpuscular HGB Conc 32.6 g/dL (31.8-35.4); Mean Corpuscular Hemoglobin 35.1 pg (27.0-31.2); Mean Corpuscular Volume 107.7 fl (81-99); Monocytes # 0.1 K/mm3 (0.1-1.0); Monocytes % 1.3 % (1.7-9.3); Neutrophils # 3.8 K/mm3 (1.8-7.8); Neutrophils % 87.1 % (37.0-80.0); Platelet Count 200 K/mm3 (142-424); Red Blood Count 3.32 M/mm3 (4.20-5.40); White Blood Count 4.4 K/mm3 (4.8-10.8)
[2022-09-16 14:14] LABS: MANUAL DIFFERENTIAL MANUAL DIFFERENTIAL (MANUAL DIFF)
[2022-09-16 14:20] LABS: Chloride 105 mmol/L (98-107)
[2022-09-16 14:21] LABS: Potassium 4.1 mmoL/L (3.5-5.1); Sodium 139 mmol/L (136-145)
[2022-09-16 14:23] LABS: Alanine Aminotransferase 18 U/L (12-78); Albumin Level 2.8 g/dl (3.5-5.0); Alkaline Phosphatase 87 U/L (38-126); Anion Gap 8.1 mEq/L (5-15); Aspartate Amino Transferase 22 U/L (14-36); Bilirubin,Total 0.5 mg/dl (0.2-1.3); Blood Urea Nitrogen 32 mg/dl (7-17); Carbon Dioxide 30 mmol/L (22.0-30.0); Creatinine Clearance Estimated 36 mL/min (50-200); Estimated Glomerular Filt Rate 43 ml/min (>60); GFR (African American) 52 ML/MIN (>60)
[2022-09-16 14:24] LABS: Albumin/Globulin Ratio 0.7 (1.1-1.8); Calcium 8.2 mg/dl (8.4-10.2); Globulin 4.1 g/dL (1.3-3.2); Glucose 91 mg/dl (74-100); Total Protein,Serum 6.9 g/dl (6.3-8.2)
[2022-09-16 14:31] VITALS: BP 145/67; PULSE 64; O2SAT 99
[2022-09-16 14:55] LABS: Lymphocytes % 14 % (10-50); Macrocytosis 2+; Monocytes % 1 % (2-9); Neutrophils % 85 % (42-76); Platelet Estimate Normal; Total Cells Counted 100
--- NOTE | 2022-09-16 15:03 | PC.NURSE ---
500MG KEPPRA PULLED FROM [facility] AND DELIVERED TO ER
[2022-09-16 15:11] VITALS: BP 143/62; PULSE 61; RESP 20; TEMP 36.5; O2SAT 99
== END 2022-09-16 15:12 | disposition home or self-care (01) ==
PROVIDERS: Emergency Provider Emergency Medicine; PCP Nurse Practitioner Family
DX: G40.909 Epilepsy, unspecified, not intractable, without status epilepticus (principal); C34.00 Malignant neoplasm of unspecified main bronchus; C79.31 Secondary malignant neoplasm of brain; R29.810 Facial weakness; R47.9 Unspecified speech disturbances; R53.1 Weakness; Z79.82 Long term (current) use of aspirin; Z79.899 Other long term (current) drug therapy; Z88.8 Allergy status to other drugs, medicaments and biological substances
CPT/HCPCS: 36415; 70450; 80053; 81001; 82962; 85007; 85025; 96374; 96375; 99285; J1953